=== PATIENT | male | born 1970 | race Caucasian/White ===

== ENCOUNTER 2017-11-14 06:35 | Day surgery (SDC) | payer OTHER ==
[2017-11-14] MEDS ORDERED: POLYMYXIN/BACITRACIN 1L IRRIG (06:49)
[2017-11-14] MEDS ORDERED: ROPIVACAINE 0.5 % 30 ML VIAL ×2 (06:54→07:35)
[2017-11-14] MEDS ORDERED: POVIDONE IODINE 10% 28.4 GM OINT (06:55)
[2017-11-14] MEDS ORDERED: LIDOCAINE 2% (SDV) 5 ML INJ (07:00)
[2017-11-14] MEDS ORDERED: ACETAMINOPHEN 1000MG/100ML IV 100 ML (08:07)
[2017-11-14] MEDS ORDERED: PROPOFOL 20 ML (08:07)
[2017-11-14] MEDS ORDERED: LABETALOL HCL 20MG INJ ×2 (08:07→10:08)
[2017-11-14] MEDS ORDERED: ROCURONIUM 50 MG INJ (08:07)
[2017-11-14] MEDS ORDERED: CEFAZOLIN 1 GM INJ (08:07)
[2017-11-14] MEDS ORDERED: morphine 10 MG INJ (08:10)
[2017-11-14] MEDS ORDERED: hydrALAzine 20 MG INJ (08:32)
[2017-11-14] MEDS ORDERED: ONDANSETRON 4 MG INJ (10:06)
[2017-11-14] MEDS ORDERED: DEXAMETHASONE 4 MG/ML 1 ML INJ (10:06)
[2017-11-14] MEDS ORDERED: NEOSTIGMINE 3 MG/3 ML SYRINGE (10:55)
[2017-11-14] MEDS ORDERED: GLYCOPYRROLATE 0.4 MG INJ (10:56)
[2017-11-14] MEDS ORDERED: KETOROLAC 30 MG INJ (10:59)
[2017-11-14] MEDS ORDERED: HYDROmorphONE 1 MG/5 ML IV SYRINGE IV ×3 (11:30)
[2017-11-14] MEDS ORDERED: hydrALAzine 20 MG INJ IV (11:30)
[2017-11-14] MEDS ORDERED: FENTAnyl 50 MCG/ML VIAL IV ×3 (11:30)
[2017-11-14] MEDS ORDERED: OXYCODONE/ACETAMINOPHEN (5/325) TAB PO ×2 (11:30)
[2017-11-14] MEDS ORDERED: EPHEDrine SULFATE 50 MG/5 ML SYG IV (11:30)
[2017-11-14] MEDS ORDERED: ONDANSETRON 4 MG INJ IV (11:30)
[2017-11-14] MEDS ORDERED: MEPERIDINE 25 MG INJ IV (11:30)
[2017-11-14] MEDS ORDERED: DIPHENHYDRAMINE 50 MG INJ IV (11:30)
[2017-11-14] MEDS ORDERED: KETOROLAC 30 MG INJ IV (11:30)
[2017-11-14] MEDS ORDERED: LABETALOL HCL 20MG INJ IV (11:30)
[2017-11-14] MEDS ORDERED: ALBUTEROL 0.083% (NEB) 2.5 MG/3 ML AMP HHN (11:30)
[2017-11-14] MEDS ORDERED: MIDAZOLAM 1 MG/ML 2 ML INJ IV (11:30)
[2017-11-14] MEDS ORDERED: METOCLOPRAMIDE 10 MG INJ IV (11:30)
[2017-11-14] MEDS ORDERED: morphine 2 MG INJ IV (12:00)
== END 2017-11-14 13:27 | disposition home or self-care (01) ==
LOC: SDS 06:35
DX: S83.281D Other tear of lateral meniscus, current injury, right knee, subsequent encounter (principal); S83.241D Other tear of medial meniscus, current injury, right knee, subsequent encounter; S83.511D Sprain of anterior cruciate ligament of right knee, subsequent encounter; M23.41 Loose body in knee, right knee; X58.XXXD Exposure to other specified factors, subsequent encounter
CPT/HCPCS: 29880